=== PATIENT | male | born 1985 | race Caucasian/White ===

== ENCOUNTER 2016-07-31 05:43 | Emergency (ER) | payer SELFPAY ==
[~2016-07-31] VITALS: Ht 177.8 cm; Wt 70.3 kg
[2016-07-31] MEDS ORDERED: NKM (05:59)
[2016-07-31] MEDS ORDERED: IBUPROFEN600 MG ORAL (06:05)
--- NOTE | 2016-07-31 06:05 | Emergency Room Report ---
History of Present Illness General Chief Complaint: Lower Extremity Injury Source: Patient Present Illness HPI Patient 31-year-old male presented after increased left ankle pain. Patient reported having increased pain after inverting his left ankle. Patient had been able ambulatory at patient reported having increased pain and swelling to the lateral aspect of his left ankle. He denied any fever. He reported having increased pain as well as swelling. He denies prior injury. Allergies: Coded Allergies: No Known Allergies (Unverified , 07/31/16) Patient History Past Medical History: see triage record Reviewed Nursing Documentation: PMH: Agreed, PSxH: Agreed Nursing Documentation-PMH Past Medical History: No Stated History Review of Systems All Other Systems: negative except mentioned in HPI Physical Exam Vital Signs Date Time Temp Pulse Resp B/P Pulse Ox O2 Delivery O2 Flow Rate FiO2 07/31/16 05:50 98.2 87 16 134/87 97 Room Air General Appearance: well appearing, no apparent distress, alert, GCS 15, non- toxic Head: normocephalic, atraumatic ENT: hearing grossly normal, normal voice Neck: full range of motion, supple Respiratory: no respiratory distress, speaking full sentences Musculoskeletal: no calf tenderness, decreased range of mation, swelling, other - tenderness near lateral malleolus Neurologic: normal gait Psychiatric: mood/affect normal Skin: no rash Medical Decision Making Diagnostic Impression: Primary Impression: Ankle sprain ER Course Patient presented for ankle pain. Differential diagnosis included was not limited to sprain, fracture, dislocation, cellulitis, vascular insufficiency. X -ray imaging of the ankle was ordered. X-ray imaging of the left ankle 3 views interpreted by me showed normal bony alignment without evident fracture. There is soft tissue swelling noted. The patient was placed in an Trung wrap. He is advised to continue using NSAIDs . The patient is advised to follow up with primary care doctor in 1-2 days. Patient is advised to return if any worsening condition or if any changes in status that are concerning. Last Vital Signs Date Time Temp Pulse Resp B/P Pulse Ox O2 Delivery O2 Flow Rate FiO2 07/31/16 05:50 98.2 87 16 134/87 97 Room Air Status: improved Disposition: HOME, SELF-CARE Condition: Stable Scripts Ibuprofen* (MOTRIN*) 600 Mg Tablet 600 MG ORAL Q8H Y for For Pain, #30 TAB 0 Refills Prov: Luis Carlos Huang 07/31/16 Luis Carlos Huang July 31, 2016 06:05
[2016-07-31 06:26] VITALS: BP 137/85
--- NOTE | 2016-07-31 12:33 | Diagnostic Imaging Report ---
Indication: Pain Comparison: None Findings: 3 views of the left ankle obtained. No acute fracture, malalignment, periostitis, or osteochondral defects are identified. Soft tissue swelling is present. Impression: No acute fracture
== END 2016-07-31 06:26 | disposition home or self-care (01) ==
LOC: EMR 06:20
DX: S93.402A Sprain of unspecified ligament of left ankle, initial encounter (principal); X50.1XXA Overexertion from prolonged static or awkward postures, initial encounter; Y92.89 Other specified places as the place of occurrence of the external cause
CPT/HCPCS: 29540; 99283